=== PATIENT | female | born 1995 | race American Indian/Alaskan Native ===

== ENCOUNTER 2020-03-18 14:06 | Emergency (ER) | payer OTHER ==
[2020-03-18 15:46] VITALS: BP 149/94
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
== END 2020-03-18 18:55 | disposition home or self-care (01) ==
LOC: ED 14:06
DX: S02.32XA Fracture of orbital floor, left side, initial encounter for closed fracture (principal); Z79.2 Long term (current) use of antibiotics; Z79.899 Other long term (current) drug therapy; Y04.2XXA Assault by strike against or bumped into by another person, initial encounter; Y93.89 Activity, other specified; Y92.89 Other specified places as the place of occurrence of the external cause; Y99.8 Other external cause status
CPT/HCPCS: 70486